=== PATIENT | male | born 1995 | race Caucasian/White ===

== ENCOUNTER 2025-03-06 15:35 | Outpatient (CLI) | payer SELFPAY ==
[2025-03-06 15:58] LABS: Basophils % 0.3 %; Eosinophils # 0.1 10^3/uL (0.0-0.8); Eosinophils % 0.4 %; Lymphocytes % 7.9 %; Mean Corpuscular HGB Conc 36.5 g/dL (30-55); Mean Corpuscular Volume 82.1 fl (82-101); Mean Platelet Volume 10.6 fL (7.4-10.4); Monocytes # 0.5 10^3/uL (0.2-0.9); Monocytes % 4.1 %; Neutrophils # 10.94 10^3/uL (1.8-7.7); Nucleated Red Blood Cells % 0 %; Platelet Count 268 10^3/cmm (157-399); Red Blood Count 5.24 10^6/uL (3.85-5.65); Red Cell Distribution Width 12.1 % (12.1-15.1); White Blood Count 12.58 10^3/uL (3.29-11.43)
[2025-03-06 16:23] LABS: Alanine Aminotransferase 29 U/L (0-41); Albumin Level 4.9 g/dL (3.5-5.2); Alkaline Phosphatase 55 U/L (40-130); Anion Gap 18.4 (5-19); Aspartate Amino Transferase 25 U/L (0-40); Blood Urea Nitrogen 15 mg/dL (6-20); Calcium 9.6 mg/dL (8.5-10.5); Carbon Dioxide 22 mmol/L (22-29); Chloride 102 mmol/L (98-107); Globulin 3.7 g/dL (1.3-4.6); Glomerular Filtration Rate 79.7 mL/min (90-130); Glucose 101 mg/dL (65-115); Osmolality Calculated 287 mOsm/kg (285-295); Potassium 4.4 mmol/L (3.5-5.1); Sodium 138 mmol/L (136-145); Total Bilirubin 0.6 mg/dL (0.15-1.2); Total Protein 8.6 g/dL (6.6-8.7)
== END 2025-03-06 15:36 | disposition home or self-care (01) ==
PROVIDERS: Family Provider General Practice; PCP Family Medicine; Visit Provider Family Medicine
DX: E03.9 Hypothyroidism, unspecified (principal); R11.2 Nausea with vomiting, unspecified
CPT/HCPCS: 36415; 80053; 85025; 86140

== ENCOUNTER 2025-03-09 11:52 | Emergency (ER) | payer SELFPAY ==
[2025-03-09 11:56] VITALS: BP 146/78; PULSE 53; RESP 16; TEMP 36.5; O2SAT 95; BMI 38.2
[2025-03-09 12:00] VITALS: BP 150/87; PULSE 50; O2SAT 97
--- NOTE | 2025-03-09 12:19 | ED_ITS ---
HPI - Nausea/Vomiting/Diarrhea 2 General: Chief complaint: Nausea/Vomiting/Diarrhea Stated complaint: n/v, abd pain Time Seen by Provider: 03/09/25 12:05 History of Present Illness: 29-year-old male presents with some naus ea and vomiting has been going on for about a week week and a half. He also reports an occasional episode of diarrhea. He complains of some occasional crampiness but no real pain in the epigastric and left upper quadrant. Patient has no sick contacts no recent travel. Patient was seen at urgent care 3 days ago on started on omeprazole Zofran and Carafate. Patient reports that he still having symptoms and is tired of it Associated nausea: Yes Associated symtoms: Reports nausea; Denies chest pain or palpitations Related Data Previous Rx's ?Medication ?Instructions ?Recorded sertraline 100 mg tablet 100 mg PO DAILY anxiety #30 tabs 02/26/25 ondansetron 4 mg disintegrating 4 mg PO Q8H PRN nausea and 03/06/25 tablet vomiting #15 tabs sucralfate 1 gram tablet (Carafate) 1 g PO TID 4 weeks #84 tabs 03/06/25 Allergies Allergy/AdvReac Type Severity Reaction Status Date / Time No Known Allergies Allergy Verified 03/06/25 11:22 Review of Systems 2 Const: Denies: fever(s) or chills Card: Denies: chest pain or palpitations Resp: Denies: dyspnea, productive cough or wheezing GI: Reports: nausea, vomiting and diarrhea; Denies: abdominal pain PFSH ED 2 PFSH: Social History Smoking and tobacco/nicotine status: never used tobacco/nicotine Physical Exam 2 Const: COMMON NORMALS: no acute distress, patient oriented x3 and healthy appearing NUTRITIONAL APPEARANCE: overweight Resp: COMMON NORMALS: normal respiratory effort, No use of accessory muscles and clear to auscultation bilaterally AUSCULTATION: clear to auscultation bilaterally Cardio: COMMON NORMALS: regular rate and regular rhythm RATE: regular rate RHYTHM: regular rhythm GI: COMMON NORMALS: Soft to palpation and non-tender PALPATION: Yes Soft to palpation Extremity: COMMON NORMALS: normal to inspection Neuro: COMMON NORMALS: patient oriented x3, moves all extremities and no focal motor deficits Psych: COMMON NORMALS: mental status grossly normal, cooperative, normal affect and speech normal SPEECH: Yes normal speech Skin: COMMON NORMALS: no rashes or lesions noted GENERAL SKIN EXAM: no rashes or lesions noted Course 2 Vital Signs: Vital signs: Vital Signs Temperature 97.7 F 03/09/25 11:56 Pulse Rate 68 03/09/25 13:00 Respiratory Rate 16 03/09/25 11:56 Blood Pressure 150/87 03/09/25 12:00 Pulse Oximetry 99 03/09/25 13:00 Oxygen Delivery Me thod Room Air 03/09/25 13:00 MDM - Nausea/Vomiting/Diarrhea Medical Decision Making Patient's labs were ordered and reviewed. Patient has slight elevation of his lipase. Patient was having retching consistent with what is seen with cannabis induced emesis. He denied any cannabis use however his urine drug screen was positive is likely contributing to his symptoms. I did obtain a CT abdomen pelvis which shows a colitis. I discussed with patient that this is usually self-limiting and recommended supportive care. He should follow with his primary care provider. Clear liquid diet for the next 24 to 36 hours and advance as tolerated. Patient was stable and discharged home Lab Data 03/09/25 12:22 03/09/25 12:22 Radiology Impressions Abdomen/Pelvis CT 03/09/25 12:55 IMPRESSION: Mild colitis Laboratory Results WBC 7.98 10^3/uL (3.29-11.43) 03/09/25 12:22 RBC 5.03 10^6/uL (3.85-5.65) 03/09/25 12:22 Hgb 14.90 g/dL (11.27-16.99) 03/09/25 12:22 Hct 42.3 % (37-53) 03/09/25 12:22 MCV 84.1 fl (82-101) 03/09/25 12:22 MCH 29.6 pg (27-33) 03/09/25 12:22 MCHC 35.2 g/dL (30-55) 03/09/25 12:22 RDW 12.2 % (12.1-15.1) 03/09/25 12:22 Plt Count 224 10^3/cmm (157-399) 03/09/25 12:22 MPV 10.6 fL (7.4-10.4) H 03/09/25 12:22 Neut % (Auto) 69.6 % 03/09/25 12:22 Lymph % (Auto) 17.5 % 03/09/25 12:22 Wagoner % (Auto) 8.4 % 03/09/25 12:22 Eos % (Auto) 3.3 % 03/09/25 12:22 Baso % (Auto) 0.9 % 03/09/25 12:22 Neut # (Auto) 5.56 10^3/uL (1.8-7.7) 03/09/25 12:22 Lymph # (Auto) 1.4 10^3/uL (0.8-4.8) 03/09/25 12:22 Wagoner # (Auto) 0.7 10^3/uL (0.2-0.9) 03/09/25 12:22 Eos # (Auto) 0.3 10^3/uL (0.0-0.8) 03/09/25 12:22 Baso # (Auto) 0.1 10^3/uL (0.0-0.1) 03/09/25 12:22 Nucleated RBC % (auto) 0 % 03/09/25 12:22 Nucleated RBCs # 0.0 /100WBC 03/09/25 12:22 Sodium 141 mmol/L (136-145) 03/09/25 12:22 Potassium 3.9 mmol/L (3.5-5.1) 03/09/25 12:22 Chloride 102 mmol/L (98-107) 03/09/25 12:22 Carbon Dioxide 25 mmol/L (22-29) 03/09/25 12:22 Anion Gap 17.9 (5-19) 03/09/25 12:22 BUN 9 mg/dL (6-20) 03/09/25 12:22 Creatinine 1.0 mg/dL (0.7-1.2) 03/09/25 12:22 GFR Calculation 89.0 mL/min (90-130) L 03/09/25 12:22 Glucose 102 mg/dL (65-115) 03/09/25 12:22 Calculated Osmolality 291 mOsm/kg (285-295) 03/09/25 12:22 Calcium 9.6 mg/dL (8.5-10.5) 03/09/25 12:22 Total Bilirubin 0.6 mg/dL (0.15-1.2) 03/09/25 12:22 AST 22 U/L (0-40) 03/09/25 12:22 ALT 23 U/L (0-41) 03/09/25 12:22 Alkaline Phosphatase 55 U/L (40-130) 03/09/25 12:22 Total Protein 7.8 g/dL (6.6-8.7) 03/09/25 12:22 Albumin 4.3 g/dL (3.5-5.2) 03/09/25 12:22 Globulin 3.5 g/dL (1.3-4.6) 03/09/25 12:22 Lipase 298 U/L (13-60) H 03/09/25 12:22 Urine Color Yellow (Yellow) 03/09/25 13:10 Urine Appearance Clear (CLEAR) 03/09/25 13:10 Urine pH 7.0 (5-7) 03/09/25 13:10 Ur Specific Christine 1.018 (1.005-1.030) 03/09/25 13:10 Urine Protein Trace (Negative) A 03/09/25 13:10 Urine Glucose (UA) Negative (Normal) 03/09/25 13:10 Urine Ketones Trace (Negative) 03/09/25 13:10 Urine Blood Negative (Negative) 03/09/25 13:10 Urine Nitrate Negative (Negative) 03/09/25 13:10 Urine Bilirubin Negative (Negative) 03/09/25 13:10 Urine Urobilinogen 1.0 mg/dL (Negative) 03/09/25 13:10 Ur Leukocyte Esterase Negative (Negative) 03/09/25 13:10 Urine RBC 0-2 /hpf (0-2) 03/09/25 13:10 Urine WBC 0-5 /hpf (0-5) 03/09/25 13:10 Ur Squamous Epith Cells 0-5 /hpf (0-5) 03/09/25 13:10 Amorphous Sediment Not Reportable 03/09/25 13:10 Urine Bacteria None seen /hpf (NONE) 03/09/25 13:10 Hyaline Casts 0-4 /lpf H 03/09/25 13:10 Urine Opiates Screen Negative ng/mL (Negative) 03/09/25 13:10 Ur Barbiturates Screen Negative ng/mL (Negative) 03/09/25 13:10 Ur Phencyclidine Scrn Negative ng/mL (Negative) 03/09/25 13:10 Ur Amphetamines Screen Negative ng/mL (Negative) 03/09/25 13:10 U Benzodiazepines Scrn Negative ng/mL (Negative) 03/09/25 13:10 Urine Cocaine Screen Negative ng/mL (Negative) 03/09/25 13:10 U Marijuana (THC) Screen Positive ng/mL (Negative) H 03/09/25 13:10 All radiology interpretation(s) finalized by discharge Discharge Plan Discharge Patient Disposition: Home Clinical Impression: Colitis Condition: Stable Prescriptions: No Action sertraline 100 mg tablet 100 mg PO DAILY Qty: 30 1RF sucralfate [Carafate] 1 gram tablet 1 g PO TID 28 Days Qty: 84 0RF ondansetron 4 mg tablet,disintegrating 4 mg PO Q8H PRN (Reason: nausea and vomiting) Qty: 15 0RF Discharge Orders: Discharge ED (Routine); Ordered 03/09/25 Ordered By: Christiano Peña Referrals: Alexei Balderas DO [Primary Care Provider, [facility]] Discharge Diet: Advance as tolerated and Clear Liquid Discharge Activity: Increase activity as tolerated Patient Instructions: Clear Liquid Diet (ED), Colitis (ED), Opioid Safety, Pain Management Activity Restrictions/Additional Instructions: Clear liquid diet for the next 36 hours and advance as tolerated. It is not uncommon for colitis symptoms last up to 2 weeks. If not improving in the next week please follow with your primary care provider for recheck. Please refrain from any marijuana use that will likely worsen the nausea and vomiting and also has significant increase and health risk such as dementia, stroke and heart attack with increased risk of up to 50% in each of these with long-term use. Print Language: Indonesian Coding Level of Care Code ED [employer] Machine Operator for Khadijah Awan
[2025-03-09 12:27] LABS: Basophils # 0.1 10^3/uL (0.0-0.1); Basophils % 0.9 %; Eosinophils # 0.3 10^3/uL (0.0-0.8); Eosinophils % 3.3 %; Hematocrit 42.3 % (37-53); Lymphocytes # 1.4 10^3/uL (0.8-4.8); Lymphocytes % 17.5 %; Mean Corpuscular HGB Conc 35.2 g/dL (30-55); Mean Corpuscular Hemoglobin 29.6 pg (27-33); Mean Corpuscular Volume 84.1 fl (82-101); Mean Platelet Volume 10.6 fL (7.4-10.4); Monocytes # 0.7 10^3/uL (0.2-0.9); Monocytes % 8.4 %; Neutrophils # 5.56 10^3/uL (1.8-7.7); Neutrophils % 69.6 %; Nucleated Red Blood Cells % 0 %; Platelet Count 224 10^3/cmm (157-399); Red Blood Count 5.03 10^6/uL (3.85-5.65); Red Cell Distribution Width 12.2 % (12.1-15.1); White Blood Count 7.98 10^3/uL (3.29-11.43)
[2025-03-09 12:30] VITALS: PULSE 51; O2SAT 97
[2025-03-09] MEDS: sodium chloride 0.9% 1,000 ML 999 ML IV (12:36)
[2025-03-09 12:43] LABS: Alanine Aminotransferase 23 U/L (0-41); Albumin Level 4.3 g/dL (3.5-5.2); Alkaline Phosphatase 55 U/L (40-130); Anion Gap 17.9 (5-19); Aspartate Amino Transferase 22 U/L (0-40); Blood Urea Nitrogen 9 mg/dL (6-20); Calcium 9.6 mg/dL (8.5-10.5); Carbon Dioxide 25 mmol/L (22-29); Chloride 102 mmol/L (98-107); Creatinine Clr Calc Pharmacy 156.4217; Globulin 3.5 g/dL (1.3-4.6); Glucose 102 mg/dL (65-115); Lipase 298 U/L (13-60); Osmolality Calculated 291 mOsm/kg (285-295); Potassium 3.9 mmol/L (3.5-5.1); Sodium 141 mmol/L (136-145); Total Bilirubin 0.6 mg/dL (0.15-1.2); Total Protein 7.8 g/dL (6.6-8.7)
[2025-03-09] MEDS: metoclopramide 5 mg/mL SDV 2 mL 10 MG IVP (12:44)
--- NOTE | 2025-03-09 12:55 | CTR_ITS ---
PROCEDURE INFORMATION: Exam: CT Abdomen And Pelvis With Contrast Exam date and time: 03/09/2025 1:13 PM Age: 29 years old Clinical indication: Abdominal pain; Localized; Left upper quadrant (luq); Additional info: N/v/ abd pain TECHNIQUE: Imaging protocol: Computed tomography of the abdomen and pelvis with contrast. Radiation optimization: All CT scans at this facility use at least one of these dose optimization techniques: automated exposure control; mA and/or kV adjustment per patient size (includes targeted exams where dose is matched to clinical indication); or iterative reconstruction. Contrast material: OMNI 350; Contrast volume: 100 ml; Contrast route: INTRAVENOUS (IV); COMPARISON: No relevant prior studies available. RADIATION DOSE METRICS: Total DLP (mGy-cm): 1206.87 FINDINGS: Lungs: Lung bases are clear. No pleural effusion. Liver: Normal. No mass. Gallbladder and biliary ducts: Normal. No calcified stones. No ductal dilation. Pancreas: Normal. No ductal dilation. Spleen: Normal. No splenomegaly. Adrenal glands: Normal. No mass. Kidneys and ureters: Normal. No hydronephrosis. Stomach and bowel: There is mild segmental inflammation along with segmental spasm involving the ascending colon, transverse colon and descending colon. No bowel distension noted. Appendix: No evidence of appendicitis. Intraperitoneal space: Unremarkable. No free air. No significant fluid collection. Vasculature: Unremarkable. No abdominal aortic aneurysm. Lymph nodes: Unremarkable. No enlarged lymph nodes. Urinary bladder: Unremarkable as visualized. Reproductive: Unremarkable as visualized. Bones/joints: Unremarkable. No acute fracture. Soft tissues: Unremarkable. CT/CT abdomen pelvis w con* [id number] IMPRESSION: Mild colitis
[2025-03-09 13:00] VITALS: PULSE 68; O2SAT 99
[2025-03-09] MEDS: iohexol 350 mg/mL 500 mL Btl (per mL) IV (13:14)
[2025-03-09 13:17] LABS: Bilirubin Urine Negative (Negative); Blood Urine Negative (Negative); Glucose Urine UA Negative (Normal); Ketones Urine Trace (Negative); Leukocyte Esterase Urine Negative (Negative); Nitrate Urine Negative (Negative); Protein Urine Trace (Negative); Specific Gravity, Urine 1.018 (1.005-1.030); Urine Appearance Clear (CLEAR); Urine Color Yellow (Yellow)
[2025-03-09 13:22] LABS: Add Urine Microscopic? YES; Bacteria Urine None Seen /hpf; Hyaline Casts Urine 0-4 /lpf; RBC Urine 0-2 /hpf (0-2); Squamous Epithelial Cell Urine 0-5 /hpf (0-5); WBC Urine 0-5 /hpf (0-5)
[2025-03-09 13:24] LABS: Amphetamines Screen Urine Negative (Negative); Barbiturates Screen Urine Negative (Negative); Benzodiazepines Screen Urine Negative (Negative); Cocaine Screen Urine Negative (Negative); Opiate Screen Urine Negative (Negative); PCP Screen Urine Negative (Negative); THC Screen Urine Positive (Negative)
[2025-03-09] MEDS: famotidine 20 mg/2 mL INJ 40 MG IVP (13:40)
[2025-03-09] MEDS: ondansetron 2 mg/ML SDV 2 mL 4 MG IVP (13:40)
== END 2025-03-09 14:34 | disposition home or self-care (01) ==
PROVIDERS: Emergency Provider Student in an Organized Health Care Education/Training Program; PCP Family Medicine
DX: K52.9 Noninfective gastroenteritis and colitis, unspecified (principal)
CPT/HCPCS: 36415; 74177; 80053; 80306; 81001; 83690; 85025; 96361; 96374; 96375; 99285; J2405; J2765; J3490; J7030